=== PATIENT | female | born 1990 | race Two or more races ===

== ENCOUNTER 2017-06-19 01:05 | Emergency (ER) | payer OTHER ==
[~2017-06-19] VITALS: Ht 165.1 cm; Wt 57.2 kg
--- NOTE | 2017-06-19 01:20 | NUR ---
To bed 13 a 26 yo female patient bbself from home c/o palpitations x 3 days. Patient is aaox4, nad noted. Breathing even and unlabored. vss. nondiaphoretic. ambulatory. placed patient on gowned. attached to cardiac and vs monitoring.
--- NOTE | 2017-06-19 02:22 | NUR ---
Patient discharged to home in stable condition. Written and verbal after care instructions given. Patient verbalizes understanding of instruction. Patient is ambulatory with steady gait, vss. nad noted. no further complaints.
[2017-06-19 02:23] VITALS: BP 110/76
== END 2017-06-19 02:24 | disposition home or self-care (01) ==
LOC: ER 01:07
DX: R00.2 Palpitations (principal); I49.3 Ventricular premature depolarization
CPT/HCPCS: 93005; 99283; A4606; Z7610

== ENCOUNTER 2022-10-07 15:38 | Emergency (ER) | payer OTHER ==
[~2022-10-07] VITALS: Ht 165.1 cm; Wt 59.0 kg
--- NOTE | 2022-10-07 15:50 | NUR ---
BIB FAMILY C/O DIZZINESS STARTED THIS MORNING " I COULDNT OPEN MY EYES ". AMBULATORY, PLACED IN BED, AAOX4, BREATHING EVEN AND UNLABORED SATURATING AT 97%RA.
[2022-10-07] MEDS ORDERED: METOCLOPRAMIDE HCL 10 MG/2 ML VIAL ONE (16:16)
[2022-10-07] MEDS ORDERED: SUMATRIPTAN SUCCINATE 6 MG/0.5 ML VIAL SQ ONE ×2 (16:16→16:30)
[2022-10-07] MEDS ORDERED: MECLIZINE HCL 12.5 MG TABLET ONE ×2 (16:17→16:28)
--- NOTE | 2022-10-07 16:20 | NUR ---
BLOOD DRAWN AND SENT TO LAB
[2022-10-07] MEDS ORDERED: KETOROLAC TROMETHAMINE INJ 30 MG/ML VIAL IV ONE (16:30)
[2022-10-07] MEDS ORDERED: METOCLOPRAMIDE HCL 10 MG/2 ML VIAL IV ONE (16:30)
[2022-10-07] MEDS ORDERED: MECLIZINE HCL 12.5 MG TABLET PO ONE (16:30)
[2022-10-07] MEDS ORDERED: IV NS 0.9% 1,000 ML BAG IV ONE (16:30)
[2022-10-07 16:33] LABS: BASOPHILS % (AUTO) 0.6 % (0.0-2.0); EOSINOPHILS % (AUTO) 0.8 % (0.0-6.0); HEMATOCRIT 38 % (33-45); HEMOGLOBIN 12.8 g/dL (11.5-14.8); LYMPHOCYTES # (AUTO) 1.4 K/uL (0.8-4.8); LYMPHOCYTES % (AUTO) 23.8 % (20.0-44.0); MEAN CORPUSCULAR HGB CONC 33 g/dl (31.0-36.0); MEAN CORPUSCULAR VOLUME 90 fL (82-100); MONOCYTES # (AUTO) 0.5 K/uL (0.1-1.30); NEUTROPHILS % (AUTO) 65.8 % (43.0-81.0); PLATELET COUNT (AUTO) 212 K/uL (150-450); RED BLOOD CELL COUNT(AUTO) 4.26 MIL/uL (4.0-5.2)
--- NOTE | 2022-10-07 16:35 | NUR ---
PATIENT TAKEN TO CT VIA WHEELCHAIR
[2022-10-07] MEDS ORDERED: KETOROLAC TROMETHAMINE 15 MG/ML VIAL ONE (16:46)
[2022-10-07 16:55] LABS: CALCIUM, SERUM 9.2 mg/dL (8.5-10.1); CREATININE 0.7 mg/dL (0.6-1.3); POTASSIUM 3.7 mmol/L (3.5-5.1)
[2022-10-07 16:58] LABS: BILIRUBIN,DIRECT 0.1 mg/dL (0.0-0.2); BILIRUBIN,TOTAL 0.3 mg/dL (0.2-1.0); TOTAL PROTEIN, SERUM 7.6 g/dL (6.4-8.2)
[2022-10-07] MEDS ORDERED: SUMA100T PO (17:46)
[2022-10-07] MEDS ORDERED: METO-295 PO (17:46)
[2022-10-07] MEDS ORDERED: KETO10TA2 PO (17:46)
[2022-10-07] MEDS ORDERED: MECL-159 PO (17:47)
--- NOTE | 2022-10-07 17:57 | NUR ---
IV removed. Catheter intact and site benign. Pressure and 4x4 applied to site. No bleeding noted.Patient discharged to home in stable condition. Written and verbal after care instructions given. Patient verbalizes understanding of instruction.
[2022-10-07 17:58] VITALS: BP 105/72; TEMP 97.9; O2SAT 98
[2022-10-07 19:35] LABS: BILIRUBIN,URINE NEGATIVE (NEGATIVE); COLOR,URINE YELLOW (YELLOW); LEUKOCYTE ESTERASE ,URINE NEGATIVE (NEGATIVE); NITRITE, URINE NEGATIVE (NEGATIVE); PROTEIN,URINE NEGATIVE (NEGATIVE); UGLUCOSE NEGATIVE (NEGATIVE); UROBILINOGEN,URINE 0.2 EU/dL (0.2)
[2022-10-07 19:45] LABS: BACTERIA,URINE RARE /HPF (None Seen); RBC,URINE 21-50 /HPF (0-2); SQUAMOUS EPITHELIAL CELL,UR 0-2 /HPF (None Seen); WBC,URINE 0-2 /HPF (0-3)
== END 2022-10-07 17:57 | disposition home or self-care (01) ==
LOC: ER 15:43
DX: G43.909 Migraine, unspecified, not intractable, without status migrainosus (principal); R42 Dizziness and giddiness; Z79.899 Other long term (current) drug therapy
CPT/HCPCS: 99285; 96374; 70450; 96361; 96375; 85025; 80048; 80076; 83735; 84703; 81001; 36415; 85730; 96372; J8597 ×2; J3030; J2765; J7030; J1885